=== PATIENT | male | born 1985 | race African-American/Black ===

== ENCOUNTER 2017-01-31 15:38 | Emergency (ER) | payer OTHER ==
[~2017-01-31] VITALS: Ht 182.9 cm; Wt 136.1 kg
[~2017-01-31 15:38] MED LIST: CIPROFLOXACIN500 M1 PO; LIORESAL 10 MG10 MG PO; MEDROLDOSEPACK PO; NORCO 5-325 TA1 EACH PO
[2017-01-31] MEDS ORDERED: IBUPROFEN 600600 M1 PO (16:34)
[2017-01-31] MEDS ORDERED: HYDROCODONE-AP1 EAC6 PO (16:34)
[2017-01-31 16:45] VITALS: BP 122/90
== END 2017-01-31 16:48 | disposition home or self-care (01) ==
LOC: ER 15:38
DX: S63.635A Sprain of interphalangeal joint of left ring finger, initial encounter (principal); F10.99 Alcohol use, unspecified with unspecified alcohol-induced disorder; W23.0XXA Caught, crushed, jammed, or pinched between moving objects, initial encounter; Y93.62 Activity, american flag or touch football; Y92.89 Other specified places as the place of occurrence of the external cause; Y99.8 Other external cause status